=== PATIENT | female | born 1955 | race Two or more races ===

== ENCOUNTER 2020-01-14 10:46 | Emergency (ER) | payer MEDICARE, OTHER ==
[~2020-01-14] VITALS: Ht 152.4 cm; Wt 49.9 kg
[~2020-01-14 10:46] MED LIST: GLIP10TA11; LISI-607; METF-442; TRAM50TA PO
--- NOTE | 2020-01-14 11:00 | NUR ---
R UPPER BACK PAIN X 3 WEEKS. PATIENT A/OX4, BREATHING EVEN AND UNLABORED, NO SOB NOTED, NEEDS ATTENDED. KEPT COMFORTABLE.
[2020-01-14 13:39] VITALS: BP 154/75
== END 2020-01-14 13:25 | disposition home or self-care (01) ==
LOC: ER 10:49
DX: M54.6 Pain in thoracic spine (principal); J45.909 Unspecified asthma, uncomplicated; E11.9 Type 2 diabetes mellitus without complications; Z88.6 Allergy status to analgesic agent; Z88.5 Allergy status to narcotic agent; Z79.899 Other long term (current) drug therapy; Z79.84 Long term (current) use of oral hypoglycemic drugs
CPT/HCPCS: 72074-TC

== ENCOUNTER 2022-11-22 12:07 | Emergency (ER) | payer MEDICARE ==
[~2022-11-22] VITALS: Ht 154.9 cm; Wt 53.5 kg
[~2022-11-22 12:07] MED LIST changes: -LISI-607; +LISI-768
[2022-11-22 12:31] LABS: BASOPHILS % (AUTO) 0.8 % (0.0-2.0); EOSINOPHILS % (AUTO) 0.7 % (0.0-6.0); HEMATOCRIT 39 % (33-45); HEMOGLOBIN 12.6 g/dL (11.5-14.8); LYMPHOCYTES # (AUTO) 1.9 K/uL (0.8-4.8); LYMPHOCYTES % (AUTO) 29.9 % (20.0-44.0); MEAN CORPUSCULAR HGB CONC 32 g/dl (31.0-36.0); MEAN CORPUSCULAR VOLUME 85 fL (82-100); MONOCYTES # (AUTO) 0.8 K/uL (0.1-1.30); NEUTROPHILS # (AUTO) 3.5 K/uL (1.8-8.9); NEUTROPHILS % (AUTO) 55.6 % (43.0-81.0); PLATELET COUNT (AUTO) 281 K/uL (150-450); RED BLOOD CELL COUNT(AUTO) 4.66 MIL/uL (4.0-5.2); WHITE BLOOD COUNT (AUTO) 6.4 K/uL (4.3-11.0)
[2022-11-22 12:41] LABS: CALCIUM, SERUM 8.8 mg/dL (8.5-10.1); CARBON DIOXIDE 28 mmol/L (21-32); CHLORIDE 94 mmol/L (98-107); CREATININE 1.2 mg/dL (0.6-1.3); POTASSIUM 4.4 mmol/L (3.5-5.1); SODIUM SERUM 131 mmol/L (136-145); UREA NITROGEN, BLOOD 17 mg/dL (7-18)
[2022-11-22 12:44] LABS: GLUCOSE 565 mg/dL (74-106)
[2022-11-22] MEDS ORDERED: NITROGLYCERIN 0.4 MG/TAB BOTTLE ONE (13:20)
[2022-11-22] MEDS: NITROGLYCERIN 0.4 MG/TAB BOTTLE SL ONE (13:23)
--- NOTE | 2022-11-22 13:31 | NUR ---
PT ENDORSES CHEST PAIN AFTER FIRST DOSE OF NITROSTAT 0.4MG/TAB. WILL ADMINISTER SECOND DOSE AT THIS TIME.
--- NOTE | 2022-11-22 13:36 | NUR ---
PT STATES CHEST PAIN IS 2 OUT OF 10. WILL ADMINISTER THIRD DOSE OF NITROSTAT SL 0.4MG/TAB X1.
--- NOTE | 2022-11-22 15:49 | NUR ---
Patient discharged to home in stable condition. Written and verbal after care instructions given. Patient verbalizes understanding of instruction.
--- NOTE | 2022-11-22 15:49 | NUR ---
IV removed. Catheter intact and site benign. Pressure and 4x4 applied to site. No bleeding noted.
[2022-11-22 15:50] VITALS: BP 122/76
== END 2022-11-22 15:50 | disposition home or self-care (01) ==
LOC: ER 12:14
DX: R07.89 Other chest pain (principal); E11.65 Type 2 diabetes mellitus with hyperglycemia; J45.909 Unspecified asthma, uncomplicated; Z88.5 Allergy status to narcotic agent; Z88.6 Allergy status to analgesic agent; Z79.84 Long term (current) use of oral hypoglycemic drugs; Z79.899 Other long term (current) drug therapy
CPT/HCPCS: 36415; 71045-TC; 80048-TC; 83880; 84484-TC; 85025-TC